=== PATIENT | female | born 1985 | race Caucasian/White ===

== ENCOUNTER 2021-10-01 06:16 | Inpatient (IN) ==
[2021-10-01] MEDS ORDERED: Metoclopramide 10 MG/2 ML VIAL IVP PRN (06:19)
[2021-10-01] MEDS ORDERED: Famotidine 20 MG/2 ML VIAL IVP PRN (06:19)
[2021-10-01] MEDS ORDERED: Naloxone 0.4 MG/ML INJ IVP PRN (06:19)
[2021-10-01] MEDS ORDERED: Lidocaine 1% 20 ML MDV INFILT PRN (06:19)
[2021-10-01 06:51] LABS: Basophils % 0.3 %; Eosinophils # 0.1 K/mcL (0.0-0.6); Eosinophils % 0.5 %; Hematocrit 36.7 % (35.3-44.9); Hemoglobin 11.8 g/dL (11.5-15.4); Immature Granulocytes % 0.6 % (0-4); Lymphocytes # 2.7 K/mcL (0.6-4.6); Lymphocytes % 23.1 %; Mean Corpuscular HGB Conc 32.2 g/dL (31.6-35.5); Mean Corpuscular Hemoglobin 27.6 pg (28.0-33.3); Mean Corpuscular Volume 85.9 fL (83.0-100.0); Mean Platelet Volume 9.8 fL (9.4-12.4); Monocytes # 0.5 K/mcL (0.0-1.3); Monocytes % 4.7 %; Neutrophils # 8.1 K/mcL (1.6-8.9); Platelet Count 262 K/mcL (140-400); Red Blood Count 4.27 M/mcL (3.82-4.97); Red Cell Distribution Width 14.1 % (11.5-14.5); Segmented Neutrophils % 70.8 %; White Blood Count 11.5 K/mcL (4.3-11.1)
[2021-10-01] MEDS ORDERED: *HR* Labetalol 20 MG/4 ML SYRINGE IVP PRN ×3 (06:52)
[2021-10-01] MEDS ORDERED: *HR* Labetalol 20 MG/4 ML SYRINGE IVP ONE (06:55)
[2021-10-01 06:57] LABS: Amphetamine Screen,Urine Negative ng/mL (Cutoff=1000); Barbiturate Screen,Urine Negative ng/mL (Cutoff=200); Benzodiazepines Screen,Urine Negative ng/mL (Cutoff=300); Cannabinoid Screen,Urine Negative ng/mL (Cutoff = 50); Cocaine Screen,Urine Negative ng/mL (Cutoff= 300); Opiate Screen,Urine Negative ng/mL (Cutoff=300); Phencyclidine Screen,Urine Negative ng/mL (Cutoff=25)
[2021-10-01 07:08] LABS: Alanine Aminotransferase 9 Units/L (7-52); Aspartate Amino Transferase 13 Units/L (13-39); BUN/Creatinine Ratio 9 (6-26); Blood Urea Nitrogen 5 mg/dL (6-20); Lactate Dehydrogenase 145 Units/L (140-271); Uric Acid 5.2 mg/dL (2.3-7.6); eGFR For African Americans > 60 (> 60); eGFR For Non-African Americans > 60 (> 60)
[2021-10-01 07:39] LABS: Creatinine,Urine 136 mg/dL; Protein/Creatinine Ratio,Urine 0.37 mg/mg (0.00-0.20)
[2021-10-01] MEDS ORDERED: Oxytocin 20 units/ LR 1000 mL 20 UNIT/1,000 ML BAG IVC SCH (07:45)
[2021-10-01 07:52] LABS: Influenza A PCR Negative (Negative); Influenza B PCR Negative (Negative); Resp. Syncytial Virus PCR Negative (Negative)
[2021-10-01] MEDS ORDERED: EPHEDrine 50 MG/ML VIAL IVP PRN (07:59)
[2021-10-01] MEDS: Ringers Solution, Lactated 1,000 ML IVC SCH ×3 (08:00→18:23)
[2021-10-01] MEDS ORDERED: Epidural Premix (fent/bupiv) 110 ML EP SCH (08:00)
[2021-10-01 08:19] LABS: SARS-CoV-2 by PCR (In House) Negative (Negative)
[2021-10-01] MEDS ORDERED: *HR* FentaNYL (PF) 100 MCG/2 ML VIAL ONE (10:51)
[2021-10-01] MEDS ORDERED: Ropivacaine/PF 0.2% 20 ML VIAL ONE (10:51)
[2021-10-01] MEDS ORDERED: Ondansetron 4 MG/2 ML VIAL IVP PRN (21:22)
[2021-10-02] MEDS ORDERED: Rho Immune Globulin 1,500 UNIT SYRINGE IM PRN (13:54)
[2021-10-02] MEDS ORDERED: Oxytocin 20 units/ LR 1000 mL 20 UNIT/1,000 ML BAG IVC ONE (13:54)
[2021-10-02] MEDS ORDERED: Oxytocin 20 units/ LR 1000 mL 20 UNIT/1,000 ML BAG IVC SCH (13:54)
[2021-10-02] MEDS ORDERED: Measles/Mumps/Rubella Vacc 0.5 ML VIAL SQ PRN (13:54)
[2021-10-02] MEDS ORDERED: Benzocaine/Menthol 56 GM AEROSOL SPRAY TP PRN (13:54)
[2021-10-02] MEDS ORDERED: Lanolin 7 G OINT...G. TP PRN (13:54)
[2021-10-02] MEDS ORDERED: Ondansetron ODT 4 MG TAB.RAPDIS SL PRN (13:54)
[2021-10-02] MEDS: Ibuprofen 600 MG TABLET PO SCH ×2 (14:39→23:30)
[2021-10-02] MEDS: Acetaminophen 325 MG TABLET PO SCH ×2 (17:37→23:30)
[2021-10-03 04:10] LABS: Basophils % 0.2 %; Eosinophils # 0.2 K/mcL (0.0-0.6); Eosinophils % 1.2 %; Hematocrit 29.3 % (35.3-44.9); Hemoglobin 9.5 g/dL (11.5-15.4); Immature Granulocytes % 0.7 % (0-4); Lymphocytes # 3.4 K/mcL (0.6-4.6); Lymphocytes % 18.8 %; Mean Corpuscular HGB Conc 32.4 g/dL (31.6-35.5); Mean Corpuscular Volume 86.4 fL (83.0-100.0); Monocytes # 0.7 K/mcL (0.0-1.3); Neutrophils # 13.4 K/mcL (1.6-8.9); Platelet Count 240 K/mcL (140-400); Red Blood Count 3.39 M/mcL (3.82-4.97); Red Cell Distribution Width 14.5 % (11.5-14.5); Segmented Neutrophils % 75.1 %; White Blood Count 17.9 K/mcL (4.3-11.1)
[2021-10-03] MEDS: Acetaminophen 325 MG TABLET PO SCH ×2 (06:30→18:29)
[2021-10-03] MEDS: Ibuprofen 600 MG TABLET PO SCH ×2 (06:30→18:29)
[2021-10-03] MEDS: Prenatal Vit/FA 1 EACH TABLET PO SCH (07:12)
[2021-10-03 22:17] VITALS: O2SAT 98
[2021-10-04] MEDS: Acetaminophen 325 MG TABLET PO SCH ×2 (00:30→09:10)
[2021-10-04] MEDS: Ibuprofen 600 MG TABLET PO SCH ×2 (00:30→09:09)
[2021-10-04] MEDS: Prenatal Vit/FA 1 EACH TABLET PO SCH (09:09)
[2021-10-04 11:34] VITALS: BP 114/72; PULSE 73; TEMP 97.8
== END 2021-10-04 12:34 | disposition home or self-care (01) | DRG 560 ==
LOC: 1NENULAB 06:16 → 1NENUOBS 10-02 11:18
PROVIDERS: ADMIT Obstetrics & Gynecology; ATTEND Obstetrics & Gynecology